=== PATIENT | female | born 1960 | race Hispanic/Latino ===

== ENCOUNTER 2024-07-15 10:33 | Day surgery (SDC) | payer OTHER ==
[2024-07-08 10:55] VITALS: BP 150/82; PULSE 78; RESP 18; TEMP 97.4
[~2024-07-15] VITALS: Ht 157.5 cm; Wt 150.6 kg
[2024-07-15] VITALS (9 sets, daily range): BP systolic 114–136; BP diastolic 61–83; PULSE 76–84; RESP 15–20; TEMP 96.6–97.9
[2024-07-15] MEDS ORDERED: NIFE90TA65 PO (11:53)
[2024-07-15] MEDS ORDERED: DULA4.5P SQ (11:53)
[2024-07-15] MEDS ORDERED: RIVA20TA PO (11:53)
[2024-07-15] MEDS ORDERED: EMPA25TA PO (11:53)
[2024-07-15] MEDS ORDERED: GABA300C PO (11:53)
[2024-07-15] MEDS ORDERED: ERGO50CA PO (11:53)
[2024-07-15] MEDS ORDERED: ATOR40TA69 PO (11:53)
[2024-07-15] MEDS ORDERED: METF-527 PO (11:53)
[2024-07-15] MEDS ORDERED: CARV12.511 PO (11:53)
[2024-07-15] MEDS ORDERED: LEVO150 PO (11:53)
[2024-07-15] MEDS ORDERED: TOLT4CAP PO (11:53)
[2024-07-15] MEDS ORDERED: CELE100 PO (11:53)
[2024-07-15] MEDS ORDERED: LISI40TA9 PO (11:53)
[2024-07-15] MEDS: 0.9%NACL 1000ML 1,000 ML IV ONE (12:15)
[2024-07-15] MEDS ORDERED: ONDANSETRON 4MG INJ ONE (12:19)
[2024-07-15] MEDS ORDERED: MEPERIDINE-PF 25 MG/ML SYG ONE (12:19)
[2024-07-15] MEDS ORDERED: ketaMINE 50MG/ML SYRINGE 50 MG/ML DISP.SYRIN ONE (13:28)
[2024-07-15] MEDS ORDERED: proPOFol 10 MG/ML 20ML VIAL IV ONE (13:28)
== END 2024-07-15 14:48 | disposition home or self-care (01) ==
LOC: DAH 10:33 → ENDO 10:33
PROVIDERS: ATTEND Internal Medicine Gastroenterology
DX: R10.13 Epigastric pain (principal); K22.2 Esophageal obstruction; K29.00 Acute gastritis without bleeding; K21.00 Gastro-esophageal reflux disease with esophagitis, without bleeding; K29.50 Unspecified chronic gastritis without bleeding; K76.0 Fatty (change of) liver, not elsewhere classified; K44.9 Diaphragmatic hernia without obstruction or gangrene; R14.0 Abdominal distension (gaseous); R19.4 Change in bowel habit; E78.5 Hyperlipidemia, unspecified; F41.9 Anxiety disorder, unspecified; F32.A Depression, unspecified; E11.9 Type 2 diabetes mellitus without complications; M19.90 Unspecified osteoarthritis, unspecified site; E03.9 Hypothyroidism, unspecified; Z90.49 Acquired absence of other specified parts of digestive tract; Z79.899 Other long term (current) drug therapy
CPT/HCPCS: 43249; 43239; 82948; 88305; 88312; J7030 ×2; J2704; J2405; J2175; J3490; C1726; A4620; A4215 ×2; A4223; A4657 ×2; A4222; A4221; A4663; A4606